=== PATIENT | male | born 1990 | race Caucasian/White ===

== ENCOUNTER 2016-10-21 18:13 | Emergency (ER) | payer OTHER ==
[2016-10-21 18:24] VITALS: BP 129/89
[2016-10-21] MEDS ORDERED: Ondansetron ODT TAB* 4 MG PO ONE (18:40)
--- NOTE | 2016-10-21 18:40 | ED ---
GI/ HPI - HPI Summary HPI Summary: 26M presents with nausea and lightheadedness s/p giving blood today. He states that this is his first time he gave blood and that he felt nauseous when giving blood. He drank three juices and eat some crackers. He saws that now he feels better. He denies any symptoms currently. He denies any syncope. He denies any chest pain or SOB. - History of Current Complaint Chief Complaint: EDGeneral Time Seen by Provider: 10/21/16 18:25 Stated Complaint: NAUSEA/LIGHT HEADED Pain Intensity: 0 PMH/Surg Hx/FS Hx/Imm Hx Endocrine/Hematology History: Denies: Hx Anticoagulant Therapy Cardiovascular History: Denies: Hx Hypertension Infectious Disease History: No Infectious Disease History: Reports: Traveled Outside the [place] in Last 30 Days - [place] - Family History Known Family History: Negative: Cardiac Disease - Social History Alcohol Use: Occasionally Substance Use Type: Reports: None Smoking Status (MU): Never Smoked Tobacco Review of Systems Negative: Fever Negative: Chest Pain Negative: Shortness Of Breath Positive: Nausea - resolved All Other Systems Reviewed And Are Negative: Yes Physical Exam Triage Information Reviewed: Yes Vital Signs On Initial Exam: Initial Vitals Temp Pulse Resp BP Pulse Ox 97.8 F 77 20 129/89 100 10/21/16 18:17 10/21/16 18:17 10/21/16 18:17 10/21/16 18:17 10/21/16 18:17 Vital Signs Reviewed: Yes Appearance: Positive: Well-Appearing Skin: Positive: Warm, Dry Head/Face: Positive: Normal Head/Face Inspection Eyes: Positive: Normal, EOMI, LYNNETTE, Conjunctiva Clear ENT: Positive: Normal ENT inspection, Pharynx normal, TMs normal Respiratory/Lung Sounds: Positive: Clear to Auscultation, Breath Sounds Present Cardiovascular: Positive: Normal, RRR Neurological: Positive: Sensory/Motor Intact, Alert, Oriented to Person Place, Time, CN Intact II-III Diagnostics - Vital Signs Vital Signs Temp Pulse Resp BP Pulse Ox 10/21/16 18:18 97.9 F 79 20 129/89 100 10/21/16 18:17 97.8 F 77 20 129/89 100 - Laboratory Lab Statement: Any lab studies that have been ordered have been reviewed, and results considered in the medical decision making process. GIGU Course/Dx - Course Course Of Treatment: 26M presents with nausea and lightheadness s/p giving blood. states that symptoms currently resolved. normal PE. likely vasovagal reaction. gave zofran to go. patient understands and agrees with plan - Diagnoses Differential Diagnoses - Male: Other - presyncope, syncope, vasovagal Provider Diagnoses: Nausea, Lightheadedness Discharge - Discharge Plan Condition: Good Disposition: HOME Patient Education Materials: Lightheadedness (ED) Forms: *Work Release Referrals: [facility] [Outside] Additional Instructions: Drink plenty of fluids Stand up slowly today Eat small snacks throughout the day Can take zofran dissolve under tongue if nausea returns Return to ED if develop any new or worsening symptoms
== END 2016-10-21 19:00 | disposition home or self-care (01) ==
LOC: ED 18:13
DX: R11.0 Nausea (principal); R42 Dizziness and giddiness
CPT/HCPCS: 99282; A9270-GY